=== PATIENT | female | born 1965 | race Caucasian/White ===

== ENCOUNTER 2022-01-21 16:09 | Emergency (ER) | payer OTHER, SELFPAY ==
--- NOTE | ~2022-01-21 | XR_ITS ---
XR foot RT min 3V 01/21/2022 16:36 Indication: Right foot swelling for 2 weeks Procedure: 4 views right foot Comparison: No prior studies for comparison. Findings: No fracture, subluxation or dislocation. Lisfranc joint is intact. Normal mineralization. N o foreign bodies. No focal soft tissue abnormality. Small degenerative calcaneal enthesophyte. Impression: 1: No acute fracture. Reviewed, dictated and finalized at location A. Impression: 1: No acute fracture.
--- NOTE | 2022-01-21 16:21 | ED.EXTPRO ---
HPI - Extremity Problem General Chief complaint: Extremity Problem,Nontraumatic Stated complaint: swollen rt foot Time Seen by Provider: 01/21/22 16:23 Source: patient and RN notes reviewed Mode of arrival: ambulatory Limitations: no limitations History of Present Illness HPI Narrative: 56-year-old female presents to the [facility] with complaints of right swollen foot. No known injury. States she has been walking and hiking a lot. No redness noted. Tenderness over distal first second and third metatarsals Symptoms started approximately 1 week ago. No bruising, wounds, erythema. Related Data Allergies Allergy/AdvReac Type Severity Reaction Status Date / Time No Known Allergies Allergy Verified 01/21/22 16:21 Review of Systems Review of Systems: All systems reviewed & are unremarkable except as noted in HPI and below Constitutional: Constitutional: Reports no additional constitutional complaints, Denies chills and Denies fever(s) Eyes: Eyes: Reports no additional eye complaints ENT: Reports system reviewed and no additional complaints, except as documented Cardiovascular: Cardiovascular: Reports no additional cardiovascular complaints Respiratory: Respiratory: Reports no additional respiratory complaints Gastrointestinal: Gastrointestinal: Reports no additional gastrointestinal complaints Musculoskeletal: Musculoskeletal: Reports as per HPI Integumentary/Breasts: Skin/Breast: Reports system reviewed and no additional complaints, except as docu Neurologic: Reports system reviewed and no additional complaints, except as documented Psychiatric: Psychiatric: Reports no additional psychiatric complaints Allergic/Immunologic: Allergic/Immunologic: Reports no additional allergic/immunologic complaints PMFSH Comments At the time of my signature, I reviewed and agree with the nursing past medical, surgical, social, and family history. There is no relevant family history pertinent to the patient complaint. Exam Const: General: healthy appearing, no acute distress and alert Nutritional Appearance: well nourished Orientation/consciousness: patient oriented x3 Limitations: no limitations HENMT: Head: normal to inspection Ears: external ears normal Eyes: General: appearance normal, both eyes and all related structures Pupils: Equal, round and reactive pupils present Neck: Neck: normal visual inspection, no lymphadenopathy and no meningeal signs Chest: Chest palpation & inspection: normal inspection of the chest Resp: Effort & Inspection: normal respiratory effort and no use of accessory muscles Auscultation: clear to auscultation bilaterally, no crackles, no rales, no rhonchi and no wheezes Cardio: Rate: regular rate Rhythm: regular rhythm GI: GI Palp: Yes Soft to palpation and No Tenderness to palpation present (GI) Back/Spine/Pelvis: Cervical Spine: normal cervical lordosis Thoracic/Lumbar Spine: thoracic and lumbar spine normal to inspection Skin: General skin exam: normal color Rashes: no rashes Wounds: no wounds Neuro: General: patient oriented x3, moves all extremities, no meningeal signs and no focal motor deficits Cranial nerves: Yes Equal, round and reactive pupils present Speech: normal speech Gait exam (Neuro): Normal gait present Extrem: General: normal to inspection, full ROM and capillary refill normal Right lower extremity: foot (Swelling to the dorsal aspect without signs of trauma, bruising, erythema) Details: toes with normal ROM, vascular exam Details: dorsalis pedis pulse present and tendon exam Details: active flexion normal and active extension normal; no tenderness, no unusual warmth, no abrasion, no laceration, no ecchymosis, no crepitus and no puncture wound Psych: Appearance: grossly normal and well kempt Mental Status: mental status grossly normal Affect: normal affect Attitude: cooperative Thought content: Yes Normal thought content present Course Course Emergency Course:
[2022-01-21 16:22] VITALS: BP 127/86; PULSE 74; RESP 18; TEMP 36.4; O2SAT 97
== END 2022-01-21 17:10 | disposition home or self-care (01) ==
PROVIDERS: Emergency Provider Nurse Practitioner
DX: R22.41 Localized swelling, mass and lump, right lower limb (principal)
CPT/HCPCS: 73630; 99203; G0463